=== PATIENT | female | born 1935 | race African-American/Black ===

== ENCOUNTER 2017-10-04 10:21 | Observation (INO) ==
[2017-10-04] MEDS ORDERED: 0.9 % Sodium Chloride 1,000 ML IVC ONE (10:30)
--- NOTE | 2017-10-04 10:46 | Emergency Department Note ---
Disposition Clinical Impression: General weakness, Confusion, Acute kidney injury, Sepsis secondary to UTI UTI (urinary tract infection) Qualifiers: Urinary tract infection type: site unspecified Hematuria presence: with hematuria Qualified Code(s): N39.0 - Urinary tract infection, site not specified Disposition: Admitted As Inpatient Condition: Good Referrals: Tara Joseph CNP [Primary Care Provider] - Forms: ED Satisfaction Letter Time of Disposition: 14:20 General Adult HPI - General Chief complaint: ED Shortness of Breath/Dyspnea Stated complaint: Shortness of breath Time Seen by Provider: 10/04/17 10:28 Source: patient, family, EMS Mode of arrival: EMS Limitations: no limitations Nursing Notes Reviewed: Yes Vital Signs Reviewed: Yes - History of Present Illness HPI Narrative: Patient presents to the ED via EMS and was seen and evaluated immediately upon arrival. EMS was called by the patient's son for generalized weakness and confusion. Son states that he took her to her family care physician a few days ago for an odor coming from her "female parts" states that they did some tests and placed her on an antibiotic that started within a period does not remember what it was. Reports that she has also been coughing a lot recently, so they gave her some promethazine syrup. States that since starting the antibiotics and the promethazine that she has been generally weak and having a decreased ability to walk. Also has been intermittently confused, which is different than her baseline. States that she looks dehydrated and has not been eating or drinking well. No vomiting or diarrhea. No known fever. Patient denies any chest pain or difficulty breathing. She does complain of having a headache. Denies any focal weakness Pain Scale: 7 - Related Data Home Medications Medication Instructions Recorded Confirmed Seizure Med 12/23/16 Previous Rx's Medication Instructions Recorded Amoxicillin/Clavulanate [Augmentin] 875 mg PO BIDWM #20 tablet 12/23/16 Promethazine/Dextromethorphan 5 ml PO Q4H PRN #120 ml 12/23/16 [Promethazine-Dm Syrup] methylPREDNISolone [Medrol] 4 - 24 mg PO DAILY #21 tablet 12/23/16 Allergies Allergy/AdvReac Type Severity Reaction Status Date / Time No Known Allergies Allergy Verified 10/04/17 10:32 All systems ED: reviewed and negative except as stated. Constitutional: Reports: weakness. Denies: fever Respiratory: Reports: cough. Denies: dyspnea Gastrointestinal: Denies: abdominal pain Genitourinary: Reports: as per HPI Neurological: Reports: headache, confusion Endocrine: Reports: fatigue Past Medical History - Past Medical History Attestation: Yes The following information was validated with the patient. Source: patient Medical history: Reports: hyperlipidemia, hypertension, seizures Surgical history: Reports: non-contributory Psychiatric history: Reports: no psych history - Social History Smoking Status: Never smoker Smokeless Tobacco Status: No Alcohol use: Reports: none Drug use: Reports: none Physical Exam - General Limitations: no limitations General appearance: alert, in no apparent distress, other (foul smell of UTI ) - Head Head exam: atraumatic, normocephalic, normal inspection - Eye Eye exam: Present: normal appearance, PERRL, EOMI - ENT ENT exam: mucous membranes dry (cracked) - Neck Neck exam: Present: normal inspection, full ROM, trachea midline - Chest Chest inspection: Present: normal inspection, symmetric chest wall rise - Respiratory Respiratory exam: Present: normal lung sounds bilaterally. Absent: respiratory distress - Cardiovascular Cardiovascular exam: Present: regular rate, normal rhythm, normal heart sounds - Abdominal Exam Abdominal exam: Present: soft, Non-Tender, distention. Absent: tenderness, guarding, rebound, rigidity - Extremities Exam Extremities exam: Present: normal capillary refill. Absent: pedal edema, calf tenderness - Expanded Lower Extremity Exam Hip/Pelvis exam: Present: pelvis stable - Neurological Exam Neurological exam: Present: alert. Absent: oriented X3 (oriented to person and place but not time) - Skin Skin exam: Present: warm, dry, intact, normal color Course - Reevaluation(s) Reevaluation #1: Patient was straight cathetered and her urine definitely looked infected. It was dark in color and heavily sedimented. We will go ahead and give her a dose of Rocephin as this would cover urinary and potential pulmonary sources. We will add antibiotics if needed once the workup is back. Time: 10:47 Reevaluation #2: Patient has UTI. We will admit for UTI and altered mental status. Patient given Rocephin previously. Also could have a pneumonia, so we had him on azithromycin. Vital Signs Temperature 99.7 F H 10/04/17 10:22 Pulse Rate 86 10/04/17 10:22 Respiratory Rate 18 10/04/17 10:22 Blood Pressure 144/81 10/04/17 10:22 O2 Sat by Pulse Oximetry 98 10/04/17 10:22 Temperature 99.7 F H 10/04/17 10:22 Pulse Rate 83 10/04/17 13:14 Respiratory Rate 18 10/04/17 13:14 Blood Pressure 127/76 10/04/17 13:14 O2 Sat by Pulse Oximetry 95 10/04/17 13:14 Oxygen Delivery Oxygen Delivery Nasal Cannula Medical Decision Making - Medical Records Medical records reviewed: Yes I reviewed the patient's medical records. - Lab Data Lab results reviewed: Yes I reviewed the patient's lab results. Result diagrams: 10/04/17 10:38 10/04/17 10:38 Lab Results 10/04/17 10/04/17 10/04/17 Range/Units 10:38 10:38 10:38 WBC 9.3 (4.3-11.1) K/mcL RBC 3.96 (3.82-4.97) M/mcL Hgb 12.2 (11.5-15.4) g/dL Hct 36.8 (35.3-44.9) % MCV 92.9 (83.0-100.0) fL MCH 30.8 (28.0-33.3) pg MCHC 33.2 (31.6-35.5) g/dL RDW 12.8 (11.5-14.5) % Plt Count 181 (140-400) K/mcL MPV 12.7 H (9.4-12.4) fL Immature Gran % 0.3 (0-4) % Seg Neutrophils % 68.1 % Lymphocytes % 22.5 % Monocytes % 8.7 % Eosinophils % 0.2 % Basophils % 0.2 % Neutrophils # 6.3 (1.6-8.9) K/mcL Lymphocytes # 2.1 (0.6-4.6) K/mcL Monocytes # 0.8 (0.0-1.3) K/mcL Eosinophils # 0.0 (0.0-0.6) K/mcL Basophils # 0.0 (0.0-0.2) K/mcL PT 12.7 H (9.4-12.1) Seconds INR 1.2 APTT 25.8 L (26.0-36.0) Seconds Sodium 141 (136-145) mEq/L Potassium 3.6 (3.5-5.1) mEq/L Chloride 107 (98-107) mEq/L Carbon Dioxide 24 (23-29) mEq/L BUN 37 H (8-23) mg/dL Creatinine 1.37 H (0.60-1.20) mg/dL Est GFR ( Amer) 45 L (> 60) Est GFR (Non-Af Amer) 37 L (> 60) BUN/Creatinine Ratio 27 H (6-26) Glucose 139 H (70-105) mg/dL Calculated Osmolality 303 H (280-300) Lactic Acid (0.5-2.2) mmol/L Calcium 9.2 (8.6-10.3) mg/dL Phosphorus 3.8 (2.7-4.5) mg/dL Magnesium 2.4 (1.6-2.6) mg/dL Total Bilirubin 0.6 (0.3-1.0) mg/dL Direct Bilirubin 0.3 H (0.0-0.2) mg/dL Indirect Bilirubin 0.3 (0.0-1.2) mg/dL AST 23 (13-39) Units/L ALT 16 (7-52) Units/L Alkaline Phosphatase 73 (34-104) Units/L Creatine Kinase 176 (30-223) Units/L Troponin I (< 0.04) ng/mL B-Natriuretic Peptide (Less than 100) pg/mL Serum Total Protein 7.8 (6.4-8.9) g/dL Albumin 3.9 (3.5-5.7) g/dL Globulin 3.9 H (2.4-3.5) g/dL Albumin/Globulin Ratio 1.0 L (1.1-2.2) Urine Color (Yellow) Urine Clarity (Clear) Urine pH (5.0-8.0) pH Units Ur Specific [place] (1.010-1.025) Urine Protein (Neg-Trace) mg/dL Urine Glucose (UA) (Normal) mg/dL Urine Ketones (Negative) mg/dL Urine Blood (Negative) Urine Nitrite (Negative) Urine Bilirubin (Negative) Urine Urobilinogen (Normal) mg/dL Ur Leukocyte Esterase (Negative) Urine Microscopic RBC (0-3) per hpf Urine Microscopic WBC (0-3) per hpf Ur Squamous Epith Cells (None-Few) per lpf Urine Bacteria (None-Few) per hpf Granular Casts (None Seen) per lpf WBC Casts (None Seen) per lpf Ur Culture Indicated? (NO) 10/04/17 10/04/17 10/04/17 Range/Units 10:38 10:38 10:38 WBC (4.3-11.1) K/mcL RBC (3.82-4.97) M/mcL Hgb (11.5-15.4) g/dL Hct (35.3-44.9) % MCV (83.0-100.0) fL MCH (28.0-33.3) pg MCHC (31.6-35.5) g/dL RDW (11.5-14.5) % Plt Count (140-400) K/mcL MPV (9.4-12.4) fL Immature Gran % (0-4) % Seg Neutrophils % % Lymphocytes % % Monocytes % % Eosinophils % % Basophils % % Neutrophils # (1.6-8.9) K/mcL Lymphocytes # (0.6-4.6) K/mcL Monocytes # (0.0-1.3) K/mcL Eosinophils # (0.0-0.6) K/mcL Basophils # (0.0-0.2) K/mcL PT (9.4-12.1) Seconds INR APTT (26.0-36.0) Seconds Sodium (136-145) mEq/L Potassium (3.5-5.1) mEq/L Chloride (98-107) mEq/L Carbon Dioxide (23-29) mEq/L BUN (8-23) mg/dL Creatinine (0.60-1.20) mg/dL Est GFR ( Amer) (> 60) Est GFR (Non-Af Amer) (> 60) BUN/Creatinine Ratio (6-26) Glucose (70-105) mg/dL Calculated Osmolality (280-300) Lactic Acid 0.9 (0.5-2.2) mmol/L Calcium (8.6-10.3) mg/dL Phosphorus (2.7-4.5) mg/dL Magnesium (1.6-2.6) mg/dL Total Bilirubin (0.3-1.0) mg/dL Direct Bilirubin (0.0-0.2) mg/dL Indirect Bilirubin (0.0-1.2) mg/dL AST (13-39) Units/L ALT (7-52) Units/L Alkaline Phosphatase (34-104) Units/L Creatine Kinase (30-223) Units/L Troponin I < 0.03 (< 0.04) ng/mL B-Natriuretic Peptide 176 H (Less than 100) pg/mL Serum Total Protein (6.4-8.9) g/dL Albumin (3.5-5.7) g/dL Globulin (2.4-3.5) g/dL Albumin/Globulin Ratio (1.1-2.2) Urine Color (Yellow) Urine Clarity (Clear) Urine pH (5.0-8.0) pH Units Ur Specific [place] (1.010-1.025) Urine Protein (Neg-Trace) mg/dL Urine Glucose (UA) (Normal) mg/dL Urine Ketones (Negative) mg/dL Urine Blood (Negative) Urine Nitrite (Negative) Urine Bilirubin (Negative) Urine Urobilinogen (Normal) mg/dL Ur Leukocyte Esterase (Negative) Urine Microscopic RBC (0-3) per hpf Urine Microscopic WBC (0-3) per hpf Ur Squamous Epith Cells (None-Few) per lpf Urine Bacteria (None-Few) per hpf Granular Casts (None Seen) per lpf WBC Casts (None Seen) per lpf Ur Culture Indicated? (NO) 10/04/17 Range/Units 10:42 WBC (4.3-11.1) K/mcL RBC (3.82-4.97) M/mcL Hgb (11.5-15.4) g/dL Hct (35.3-44.9) % MCV (83.0-100.0) fL MCH (28.0-33.3) pg MCHC (31.6-35.5) g/dL RDW (11.5-14.5) % Plt Count (140-400) K/mcL MPV (9.4-12.4) fL Immature Gran % (0-4) % Seg Neutrophils % % Lymphocytes % % Monocytes % % Eosinophils % % Basophils % % Neutrophils # (1.6-8.9) K/mcL Lymphocytes # (0.6-4.6) K/mcL Monocytes # (0.0-1.3) K/mcL Eosinophils # (0.0-0.6) K/mcL Basophils # (0.0-0.2) K/mcL PT (9.4-12.1) Seconds INR APTT (26.0-36.0) Seconds Sodium (136-145) mEq/L Potassium (3.5-5.1) mEq/L Chloride (98-107) mEq/L Carbon Dioxide (23-29) mEq/L BUN (8-23) mg/dL Creatinine (0.60-1.20) mg/dL Est GFR ( Amer) (> 60) Est GFR (Non-Af Amer) (> 60) BUN/Creatinine Ratio (6-26) Glucose (70-105) mg/dL Calculated Osmolality (280-300) Lactic Acid (0.5-2.2) mmol/L Calcium (8.6-10.3) mg/dL Phosphorus (2.7-4.5) mg/dL Magnesium (1.6-2.6) mg/dL Total Bilirubin (0.3-1.0) mg/dL Direct Bilirubin (0.0-0.2) mg/dL Indirect Bilirubin (0.0-1.2) mg/dL AST (13-39) Units/L ALT (7-52) Units/L Alkaline Phosphatase (34-104) Units/L Creatine Kinase (30-223) Units/L Troponin I (< 0.04) ng/mL B-Natriuretic Peptide (Less than 100) pg/mL Serum Total Protein (6.4-8.9) g/dL Albumin (3.5-5.7) g/dL Globulin (2.4-3.5) g/dL Albumin/Globulin Ratio (1.1-2.2) Urine Color Dark Yellow (Yellow) Urine Clarity Turbid A (Clear) Urine pH 6.0 (5.0-8.0) pH Units Ur Specific [place] 1.021 (1.010-1.025) Urine Protein 100 H (Neg-Trace) mg/dL Urine Glucose (UA) Normal (Normal) mg/dL Urine Ketones Negative (Negative) mg/dL Urine Blood Moderate H (Negative) Urine Nitrite Positive A (Negative) Urine Bilirubin Small H (Negative) Urine Urobilinogen Normal (Normal) mg/dL Ur Leukocyte Esterase Small H (Negative) Urine Microscopic RBC 0-3 (0-3) per hpf Urine Microscopic WBC 50-100 H (0-3) per hpf Ur Squamous Epith Cells Many H (None-Few) per lpf Urine Bacteria Many H (None-Few) per hpf Granular Casts Few H (None Seen) per lpf WBC Casts Many H (None Seen) per lpf Ur Culture Indicated? NO. (NO) - Radiology Data Radiology results reviewed: Yes I reviewed the patient's radiology results. - EKG Data EKG #1 EKG attestation: Yes I reviewed and interpreted this EKG. EKG results narrative: Sinus rhythm, rate 85, SD interval 164, QRS 92, QTC 398, left axis deviation, no acute ischemic changes Critical Care Time Critical Care Time: Yes Total Critical Care Time: 35 Attestation: Critical care time 35 minutes managing patient's urosepsis. Attestation Statement - Attestation Attestation: Patient was seen with resident physician. I reviewed the history, physical, assessment and plan, and agree with the findings. I also personally evaluated this patient and had [id number] time with this patient. 82-year-old female brought to the emergency department by her son for increased weakness and perhaps some mild confusion. Patient still says she feels generally okay just weak, denies shortness of breath chest pain or abdominal pain. Son however says she has had some issues with her "female parts" for which she has gotten an antibiotic. He notes that her ability to walk and to care for herself has diminished since she started antibiotics and cough medicine several days ago. She is brought today for evaluation and treatment. On exam vital signs were stable. ENT is dry mucous membranes. Heart regular rhythm and rate. Lungs no appreciable abnormalities. Abdomen is soft and nontender. Extremities mild swelling in the feet bilaterally. Remainder is unremarkable. Neurologically she is alert moves all extremities and follows commands. ED course we will do a full septic workup including head CT scan as at one point the patient had complained of a headache to the resident physician. Once complete we will disposition the patient according to the findings of the workup. Patient's workup was suggestive for urosepsis based more on acute kidney injury then blood cell count or other vital signs.. We will start an IV antibiotics and admitted to hospital service. The hospitalist was notified as to need for admission and agreed to accept the patient. Agree with resident physician assessment and plan.
[2017-10-04 10:49] LABS: Basophils % 0.2 %; Eosinophils % 0.2 %; Hematocrit 36.8 % (35.3-44.9); Hemoglobin 12.2 g/dL (11.5-15.4); Immature Granulocytes % 0.3 % (0-4); Lymphocytes # 2.1 K/mcL (0.6-4.6); Lymphocytes % 22.5 %; Mean Corpuscular HGB Conc 33.2 g/dL (31.6-35.5); Mean Corpuscular Hemoglobin 30.8 pg (28.0-33.3); Mean Corpuscular Volume 92.9 fL (83.0-100.0); Mean Platelet Volume 12.7 fL (9.4-12.4); Monocytes # 0.8 K/mcL (0.0-1.3); Monocytes % 8.7 %; Neutrophils # 6.3 K/mcL (1.6-8.9); Platelet Count 181 K/mcL (140-400); Red Blood Count 3.96 M/mcL (3.82-4.97); Red Cell Distribution Width 12.8 % (11.5-14.5); Segmented Neutrophils % 68.1 %
[2017-10-04 10:55] LABS: Bilirubin,Urine Small (Negative); Blood,Urine Moderate (Negative); Clarity,Urine Turbid (Clear); Color,Urine Dark Yellow (Yellow); Glucose,Urine (UA) Normal (Normal); Ketones,Urine Negative (Negative); Leukocyte Esterase,Urine Small (Negative); Nitrite,Urine Positive (Negative); Protein,Urine 100 mg/dL (Neg-Trace); Specific Gravity,Urine 1.021 (1.010-1.025); Urobilinogen,Urine Normal (Normal)
[2017-10-04 10:57] LABS: INR 1.2; Prothrombin Time 12.7 Seconds (9.4-12.1)
[2017-10-04 10:58] LABS: Bacteria,Urine Many per hpf (None-Few); RBC,Urine 0-3 per hpf (0-3); Squamous Epithelial Cell,Urine Many per lpf (None-Few); WBC,Urine 50-100 per hpf (0-3)
[2017-10-04 11:00] LABS: Activated Partial Thrombo Time 25.8 Seconds (26.0-36.0)
[2017-10-04] MEDS ORDERED: cefTRIAXone 1,000 MG in Water for inj. (sterile) 10 ML IVP ONE (11:04)
[2017-10-04 11:06] LABS: Albumin 3.9 g/dL (3.5-5.7); Bilirubin,Direct 0.3 mg/dL (0.0-0.2); Bilirubin,Indirect 0.3 mg/dL (0.0-1.2); Bilirubin,Total 0.6 mg/dL (0.3-1.0); Calcium 9.2 mg/dL (8.6-10.3); Globulin 3.9 g/dL (2.4-3.5); Magnesium 2.4 mg/dL (1.6-2.6); Phosphorous 3.8 mg/dL (2.7-4.5); Potassium 3.6 mEq/L (3.5-5.1); Total Protein 7.8 g/dL (6.4-8.9)
[2017-10-04 11:17] LABS: White Blood Cell Casts,Urine Many per lpf (None Seen)
[2017-10-04 11:18] LABS: Granular Casts,Urine Few per lpf (None Seen)
[2017-10-04] MEDS ORDERED: Azithromycin 500 MG in D5% in Water 250 ML IVPB ONE (11:27)
[2017-10-04] MEDS ORDERED: Naloxone 0.4 MG/ML INJ IVP PRN (14:57)
--- NOTE | 2017-10-04 16:09 | Internal Med History&Physical ---
Date of Encounter: 10/04/17 Time of Encounter: 16:02 Assessment and Plan (1) UTI (urinary tract infection) Current visit: Yes Status: Acute UA indicative of UTI; continue IV ceftriaxone started in ED. Follow urine culture and narrow accordingly. Qualifiers: Urinary tract infection type: site unspecified Hematuria presence: with hematuria Qualified Code(s): N39.0 - Urinary tract infection, site not specified; R31.9 - Hematuria, unspecified; R31.9 - Hematuria, unspecified (2) Acute kidney injury Current visit: Yes Status: Acute Cr 1.3; baseline normal. Suspect multifactorial with decreased oral intake and UTI. Received IV fluids in the ED. Avoid nephrotoxic agents as possible. Monitor repeat renal function (3) Seizure Current visit: Yes Status: Acute per hx. No recent seizure activity. Continue home Tegretol, seizure precautions (4) Acute sinusitis Current visit: Yes Status: Acute Incidentally found; head CT with moderate paranasal sinus disease with fluid suggesting acute inflammation. Afebrile, no elevated WBC. Trial intranasal steroids. Hold on ATB. Qualifiers: Sinusitis location: pansinusitis Recurrence: not specified as recurrent Qualified Code(s): J01.40 - Acute pansinusitis, unspecified (5) Abnormal chest xray Current visit: Yes Status: Acute CXR with questionable focal right mid lung density, CT of chest pending. (6) DVT prophylaxis Current visit: Yes Status: Acute Internal Medicine - H&P: HPI Chief complaint: weakness Admitted From: Home Plans for Post Hospital Care: Transfer Jail Facility History of present illness: Ms. Mitchell is a 82 year old female osteoarthritis, peripheral neuropathy and seizure disorder who presented to [facility] on 10/04/2017 with complaints of generalized weakness. She was found to have a UTI and AK I therefore placed in observation status for further workup and treatment. Information obtained from chart review, patient report insulin at bedside. Patient reports living with her son and only able to get around without difficulty. She has been receiving outpatient cortisone treatments to bilateral knees. Patient reports over the last few days she has not been able to get around as she used to, reports this pain in her knees and legs with ambulation. Overall feels generally weak. Son at bedside and requesting SNF placement if she is qualifies. No fevers or chills, no dysuria. No chest pain or shortness of breath. Son does report decreased oral intake over the last 2-3 days Past Med Surg Social Fam HX - Past Medical History Medical history: hyperlipidemia, hypertension, seizures Psychiatric history: no psych history - Past Surgical History Surgical History: non-contributory - Social History Smoking Status: Never smoker Smokeless Tobacco Status: No Alcohol use: none Drug use: none - Additional Family History Additional family history: Family history reviewed and noncontributory per patient Internal Medicine - H&P: Meds Albuterol Sulfate [Proair Hfa] 1 - 2 puff IH Q4-6H PRN 10/04/17 [History] CarBAMazepine [Carbamazepine ER] 400 mg PO BID 10/04/17 [History] Gabapentin [Neurontin] 300 mg PO HS 10/04/17 [History] Pravastatin Sodium [Pravachol] 40 mg PO HS 10/04/17 [History] Promethazine/Codeine [Phenergan/Codeine] 5 - 10 ml PO Q4-6H PRN 10/04/17 [ History] metroNIDAZOLE [Flagyl] 500 mg PO BID 10/04/17 [History] 3 Allergy/AdvReac Type Severity Reaction Status Date / Time No Known Allergies Allergy Verified 10/04/17 10:32 All Systems PM: A 10-system review of systems was performed and is negative for pertinent findings except as documented above in the HPI. - Constitutional Constitutional: lethargy, malaise, no chills, no fever(s), no night sweats - EENT Eyes: no change in vision, no discharge, no pain, no photophobia Ears: no ear discharge, no ear pain, no tinnitus Nose, mouth and throat: no dysphagia, no nasal discharge, no neck pain, no sore throat - Cardiovascular Cardiovascular ROS IM: no chest pain, no diaphoresis, no dyspnea, no lightheadedness, no palpitations, no syncope - Respiratory Respiratory: no cough, no dyspnea, no wheezing, no excessive phlegm production - Gastrointestinal Gastrointestinal: no abdominal pain, no diarrhea, no hematemesis, no hematochezia, no melena, no nausea, no vomiting - Genitourinary Genitourinary: no change in urinary stream, no dysuria, no flank pain, no hematuria - Musculoskeletal Musculoskeletal ROS IM: no numbness, no tingling - Integumentary Integumentary IM: no rash, no unusual bruising - Neurological Neurological ROS: no confusion, no convulsions, no focal weakness, no numbness, no tingling, no tremor(s) - Hematologic/Lymphatic Hematologic/Lymphatic: no easy bruising - Constitutional Vitals: Temp Pulse Resp BP Pulse Ox 99.7 F H 76 17 139/68 100 10/04/17 10:22 10/04/17 15:10 10/04/17 15:10 10/04/17 15:10 10/04/17 15:10 General appearance: Present: A&O X 3, no acute distress - Head Head exam: Present: atraumatic, normocephalic - Eye Eye exam: Present: PERRL, conjuntiva pink, sclera anicteric Pupils: Present: PERRL - Neck Neck exam general surgery: Present: supple, trachea midline. Absent: lymphadenopathy - Respiratory Respiratory exam: Present: CTAB. Absent: accessory muscle use, rales, rhonchi, wheezes - Cardiovascular Cardiovascular exam: Present: RRR, +S1, +S2. Absent: diastolic murmur, gallop, rubs, systolic murmur - GI/Abdominal GI/Abdominal exam: Present: normal bowel sounds, soft, no peritoneal signs. Absent: distended, tenderness - Extremities Exam Extremities exam: Present: warm, radial pulses palpable and symmetrical. Absent : calf tenderness, cyanotic, pedal edema - Neurological Exam Neurological exam: Present: CN II-XII intact, oriented X3, no focal deficits. Absent: pronater drift, facial droop, speech deficit - Skin Skin exam: Present: dry, intact Internal Med - H&P Results - Labs CBC & Chem 7: 10/04/17 10:38 10/04/17 10:38
[2017-10-04] MEDS: Fluticasone Propionate Nasal 50 MCG/SPRAY BOTTLE NS SCH (17:47)
[2017-10-04] MEDS: Gabapentin 300 MG CAPSULE PO SCH (20:52)
[2017-10-04] MEDS: CarBAMazepine XR (12 hr) 100 MG TAB PO SCH (20:52)
[2017-10-04] MEDS: *HR* Heparin 5,000 UNIT/ML VIAL SQ SCH (20:52)
[2017-10-05 03:22] LABS: Calcium 8.9 mg/dL (8.6-10.3); Potassium 3.6 mEq/L (3.5-5.1)
[2017-10-05] MEDS: *HR* Heparin 5,000 UNIT/ML VIAL SQ SCH ×3 (06:03→20:29)
[2017-10-05] MEDS: Fluticasone Propionate Nasal 50 MCG/SPRAY BOTTLE NS SCH (08:48)
[2017-10-05] MEDS: CarBAMazepine XR (12 hr) 100 MG TAB PO SCH ×2 (08:49→20:29)
[2017-10-05] MEDS: cefTRIAXone 1,000 MG in Water for inj. (sterile) 20 ML 10 ML IVP SCH (08:51)
--- NOTE | 2017-10-05 10:56 | Internal Med Progress Note ---
Date of Encounter: 10/05/17 Time of Encounter: 10:54 - Assessment and plan (1) UTI (urinary tract infection) Current Visit: Yes Status: Acute Assessment and plan: UA indicative of UTI; continue IV ceftriaxone started in ED. Follow urine culture and narrow accordingly. Qualifiers: Urinary tract infection type: site unspecified Hematuria presence: with hematuria Qualified Code(s): N39.0 - Urinary tract infection, site not specified; R31.9 - Hematuria, unspecified; R31.9 - Hematuria, unspecified (2) Acute kidney injury Current Visit: Yes Status: Acute Assessment and plan: Cr 1.3; baseline normal. Suspect multifactorial with decreased oral intake and UTI. Received IV fluids in the ED. Avoid nephrotoxic agents as possible. Repeat renal function normal (3) Community acquired bacterial pneumonia Current Visit: Yes Status: Acute Assessment and plan: Chest CT concerning for RUL pneumonia. Afebrile, no elevated WBC. No recent ATB use, no recent hospitalization. Cont IV azithromycin, ceftriaxone to cover for gram+/- and atypicals. Resp PCR, urinary antigens pending (4) Seizure Current Visit: Yes Status: Acute Assessment and plan: per hx. No recent seizure activity. Continue home Tegretol, seizure precautions (5) Acute sinusitis Current Visit: Yes Status: Acute Assessment and plan: Incidentally found; head CT with moderate paranasal sinus disease with fluid suggesting acute inflammation. Afebrile, no elevated WBC. Trial intranasal steroids. On azithromycin for suspected PNA which should cover for bacterial sinusitis Qualifiers: Sinusitis location: pansinusitis Recurrence: not specified as recurrent Qualified Code(s): J01.40 - Acute pansinusitis, unspecified (6) DVT prophylaxis Current Visit: Yes Status: Acute Assessment and plan: heparin - Time Spent With Patient less than 15 minutes - Subjective Interval history: Seen and examined at bedside, patient says she feels well. She c/o chronic lower back pain, otherwise she has no complaints. No CP, no SOB, no numbness/ tingling. No dysuria - Constitutional Vitals: Temp Pulse Resp BP Pulse Ox 97.8 F 70 16 139/76 95 10/05/17 06:57 10/05/17 06:57 10/05/17 06:57 10/05/17 06:57 10/05/17 06:57 General appearance: Present: A&O X 3, no acute distress - Head Head exam: Present: atraumatic, normocephalic - Eye Eye exam: Present: PERRL, conjuntiva pink, sclera anicteric Pupils: Present: PERRL - Neck Neck exam general surgery: Present: supple, trachea midline. Absent: lymphadenopathy - Respiratory Respiratory exam: Present: CTAB. Absent: accessory muscle use, rales, rhonchi, wheezes - Cardiovascular Cardiovascular exam: Present: RRR, +S1, +S2. Absent: diastolic murmur, gallop, rubs, systolic murmur - GI/Abdominal GI/Abdominal exam: Present: normal bowel sounds, soft, no peritoneal signs. Absent: distended, tenderness - Extremities Exam Extremities exam: Present: warm, radial pulses palpable and symmetrical. Absent : calf tenderness, cyanotic, pedal edema - Neurological Exam Neurological exam: Present: CN II-XII intact, oriented X3, no focal deficits. Absent: pronater drift, facial droop, speech deficit - Skin Skin exam: Present: dry, intact Internal Medicine: Result - Labs CBC & Chem 7: 10/04/17 10:38 10/05/17 02:57 Labs: BMP 10/05/17 02:57 Sodium 140 Potassium 3.6 Chloride 108 H Carbon Dioxide 27 BUN 35 H Creatinine 1.07 Glucose 105 Calcium 8.9 - ABG Interpretation ABG results: PT/INR, D-dimer PT 12.7 Seconds (9.4-12.1) H 10/04/17 10:38 - Impressions Impressions Lumbar Spine X-Ray 10/04/17 16:05 IMPRESSION: No acute osseous abnormality. Multilevel degenerative changes, which are moderate to severe at L5-S1. D/ / 10/04/2017 17:18:16 Willie Chang MD / Maryann Gipson Interpreting Provider: Willie Chang MD Chest CT 10/04/17 16:31 IMPRESSION: Mild patchy, somewhat nodular right upper lobe airspace disease, most compatible with pneumonia, accounting for the right mid lung nodular opacity on chest x-ray. D/ / Miguelina Acosta Cha, MD / Miguelina Acosta Cha, MD Interpreting Provider: Miguelina Acosta Cha, MD Consult Discharge Plan - Plan Referrals: Tara Joseph CNP [Primary Care Provider] -
[2017-10-05] MEDS: Azithromycin 500 MG in D5% in Water 250 ML IVPB SCH (11:36)
[2017-10-05 13:26] LABS: Adenovirus Not Detected (Not Detect); Bordetella Pertussis Not Detected (Not Detect); Chlamydophila pneumoniae Not Detected (Not Detect); Coronavirus 229E Not Detected (Not Detect); Coronavirus HKU1 Not Detected (Not Detect); Coronavirus NL63 Not Detected (Not Detect); Coronavirus OC43 Not Detected (Not Detect); Human Metapneumovirus Not Detected (Not Detect); Human Rhinovirus/Enterovirus Not Detected (Not Detect); Influenza A Subtype 2009 H1 Not Detected (Not Detect); Influenza A Untypeable Not Detected (Not Detect); Influenza B Not Detected (Not Detect); Mycoplasma pneumoniae Not Detected (Not Detect); Parainfluenza Virus 1 Not Detected (Not Detect); Parainfluenza Virus 2 Not Detected (Not Detect); Parainfluenza Virus 3 Not Detected (Not Detect); Parainfluenza Virus 4 Not Detected (Not Detect); Respiratory Syncytial Virus Not Detected (Not Detect)
[2017-10-05] MEDS: Gabapentin 300 MG CAPSULE PO SCH (20:28)
[2017-10-06] MEDS: *HR* Heparin 5,000 UNIT/ML VIAL SQ SCH ×3 (05:42→22:27)
[2017-10-06] MEDS: CarBAMazepine XR (12 hr) 100 MG TAB PO SCH ×2 (10:22→20:14)
[2017-10-06] MEDS: cefTRIAXone 1,000 MG in Water for inj. (sterile) 20 ML 10 ML IVP SCH (10:22)
[2017-10-06] MEDS: Fluticasone Propionate Nasal 50 MCG/SPRAY BOTTLE NS SCH (10:24)
[2017-10-06] MEDS: Azithromycin 500 MG in D5% in Water 250 ML IVPB SCH (12:54)
--- NOTE | 2017-10-06 14:20 | Internal Med Progress Note ---
Date of Encounter: 10/06/17 Time of Encounter: 14:18 - Assessment and plan (1) UTI (urinary tract infection) Current Visit: Yes Status: Acute Assessment and plan: UA indicative of UTI; continue IV ceftriaxone started in ED. Follow urine culture and narrow accordingly. Qualifiers: Urinary tract infection type: site unspecified Hematuria presence: with hematuria Qualified Code(s): N39.0 - Urinary tract infection, site not specified; R31.9 - Hematuria, unspecified; R31.9 - Hematuria, unspecified (2) Acute kidney injury Current Visit: Yes Status: Acute Assessment and plan: Cr 1.3; baseline normal. Suspect multifactorial with decreased oral intake and UTI. Received IV fluids in the ED. Avoid nephrotoxic agents as possible. Repeat renal function normal (3) Community acquired bacterial pneumonia Current Visit: Yes Status: Acute Assessment and plan: Chest CT concerning for RUL pneumonia. Afebrile, no elevated WBC. No recent ATB use, no recent hospitalization. Urinary antigens negative. Cont IV azithromycin , ceftriaxone to cover for gram+/- and atypicals. (4) Influenza A Current Visit: Yes Status: Acute Assessment and plan: resp PCR positive for influenza A. Continue Tamiflu for total 5 day course (5) Seizure Current Visit: Yes Status: Acute Assessment and plan: per hx. No recent seizure activity. Continue home Tegretol, seizure precautions (6) Acute sinusitis Current Visit: Yes Status: Acute Assessment and plan: Incidentally found; head CT with moderate paranasal sinus disease with fluid suggesting acute inflammation. Afebrile, no elevated WBC. Trial intranasal steroids. On azithromycin for suspected PNA which should cover for bacterial sinusitis Qualifiers: Sinusitis location: pansinusitis Recurrence: not specified as recurrent Qualified Code(s): J01.40 - Acute pansinusitis, unspecified (7) DVT prophylaxis Current Visit: Yes Status: Acute Assessment and plan: heparin - Subjective Interval history: Seen and examined at bedside, patient says she feels well. Still with c/o chronic lower back pain, otherwise she has no complaints. No CP, no SOB, no numbness/tingling. No dysuria - Constitutional Vitals: Temp Pulse Resp BP Pulse Ox 98.4 F 74 16 179/84 95 10/06/17 11:30 10/06/17 11:30 10/06/17 11:30 10/06/17 11:30 10/06/17 11:30 General appearance: Present: A&O X 3, no acute distress - Head Head exam: Present: atraumatic, normocephalic - Eye Eye exam: Present: PERRL, conjuntiva pink, sclera anicteric Pupils: Present: PERRL - Neck Neck exam general surgery: Present: supple, trachea midline. Absent: lymphadenopathy - Respiratory Respiratory exam: Present: CTAB. Absent: accessory muscle use, rales, rhonchi, wheezes - Cardiovascular Cardiovascular exam: Present: RRR, +S1, +S2. Absent: diastolic murmur, gallop, rubs, systolic murmur - GI/Abdominal GI/Abdominal exam: Present: normal bowel sounds, soft, no peritoneal signs. Absent: distended, tenderness - Extremities Exam Extremities exam: Present: warm, radial pulses palpable and symmetrical. Absent : calf tenderness, cyanotic, pedal edema - Neurological Exam Neurological exam: Present: CN II-XII intact, oriented X3, no focal deficits. Absent: pronater drift, facial droop, speech deficit - Skin Skin exam: Present: dry, intact Internal Medicine: Result - Labs CBC & Chem 7: 10/04/17 10:38 10/05/17 02:57 - ABG Interpretation ABG results: PT/INR, D-dimer PT 12.7 Seconds (9.4-12.1) H 10/04/17 10:38 Consult Discharge Plan - Plan Referrals: Tara Joseph, [employer] [Primary Care Provider] -
[2017-10-06] MEDS: Gabapentin 300 MG CAPSULE PO SCH (20:15)
[2017-10-06] MEDS: Oseltamivir Phosphate 30 MG CAPSULE PO SCH (20:15)
[2017-10-07] MEDS: *HR* Heparin 5,000 UNIT/ML VIAL SQ SCH ×2 (05:17→13:23)
[2017-10-07] MEDS: CarBAMazepine XR (12 hr) 100 MG TAB PO SCH (09:48)
[2017-10-07] MEDS: Oseltamivir Phosphate 30 MG CAPSULE PO SCH (09:49)
[2017-10-07] MEDS: cefTRIAXone 1,000 MG in Water for inj. (sterile) 20 ML 10 ML IVP SCH (09:49)
[2017-10-07] MEDS: Fluticasone Propionate Nasal 50 MCG/SPRAY BOTTLE NS SCH (09:49)
[2017-10-07] MEDS: Azithromycin 500 MG in D5% in Water 250 ML IVPB SCH (12:00)
--- NOTE | 2017-10-07 13:57 | Discharge Summary ---
Date of Encounter: 10/07/17 Time of Encounter: 13:55 - Discharge Diagnosis (1) Community acquired bacterial pneumonia Priority: Primary Status: Acute Comments: Chest CT concerning for RUL pneumonia. Afebrile, no elevated WBC. No recent ATB use, no recent hospitalization. Urinary antigens negative. Treated with IV azithromycin, ceftriaxone. Changed to Levaquin at discharge. (2) Influenza A Priority: Primary Status: Acute Comments: resp PCR positive for influenza A. Continue Tamiflu for total 5 day course (3) Acute sinusitis Priority: Primary Status: Acute Comments: Incidentally found; head CT with moderate paranasal sinus disease with fluid suggesting acute inflammation. Afebrile, no elevated WBC. Discharge home on fluticasone. On Levaquin as noted above which would cover for bacterial component. Qualifiers: Sinusitis location: pansinusitis Recurrence: not specified as recurrent Qualified Code(s): J01.40 - Acute pansinusitis, unspecified (4) UTI (urinary tract infection) Priority: Primary Status: Acute Comments: UA indicative of UTI. Received 3 doses IV ceftriaxone. Urine culture was bryant- sensitive Escherichia coli. Discharge on Levaquin Qualifiers: Urinary tract infection type: site unspecified Hematuria presence: with hematuria Qualified Code(s): N39.0 - Urinary tract infection, site not specified; R31.9 - Hematuria, unspecified; R31.9 - Hematuria, unspecified (5) Acute kidney injury Priority: Primary Status: Acute Comments: Cr 1.3; baseline normal. Suspect multifactorial with decreased oral intake and UTI. Normalized with IV fluids. (6) Seizure Priority: Secondary Status: Chronic Comments: per hx. No recent seizure activity. Continue home Tegretol, seizure precautions - Discharge Medications Prescriptions: Fluticasone Propionate Nasal [Flonase] 100 mcg NS DAILY #1 bottle levoFLOXacin [Levaquin] 750 mg PO DAILY #5 tablet Oseltamivir Phosphate [Tamiflu] 30 mg PO BID #6 capsule Home Medications: Albuterol Sulfate [Proair Hfa] 1 - 2 puff IH Q4-6H PRN 10/04/17 [History] CarBAMazepine [Carbamazepine ER] 400 mg PO BID 10/04/17 [History] Gabapentin [Neurontin] 300 mg PO HS 10/04/17 [History] Pravastatin Sodium [Pravachol] 40 mg PO HS 10/04/17 [History] Promethazine/Codeine [Phenergan/Codeine] 5 - 10 ml PO Q4-6H PRN 10/04/17 [ History] Fluticasone Propionate Nasal [Flonase] 100 mcg NS DAILY #1 bottle 10/07/17 [Rx] Oseltamivir Phosphate [Tamiflu] 30 mg PO BID #6 capsule 10/07/17 [Rx] levoFLOXacin [Levaquin] 750 mg PO DAILY #5 tablet 10/07/17 [Rx] Allergies/Adverse Reactions: 3 Allergy/AdvReac Type Severity Reaction Status Date / Time No Known Allergies Allergy Verified 10/04/17 10:32 Procedures/tests Complete & Pending: Procedures Performed prior 72 hours Category Date Time Status CT chest w/o contrast [CT chest wo con] [CT] Routine Cat Scan 10/04/17 16:31 Completed Date of admission: 10/04/17 14:33 Primary care physician: Tara Joseph CNP Consults: 10/04/17 16:06 Consult to Physical Therapy [CONS] Routine Comment: Evaluate, develop and implement POC Reason for Consult: Generalized wekaness. Wants SNF placement OT [Consult to Occupational Therapy] [CONS] Routine Comment: Evaluate, develop and implement POC Reason for Consult: Generalized wekaness. Wants SNF placement 10/04/17 17:40 Consult to Silhouette Artist [CONS] Routine Reason for SW Consult: DISCHARGE NEEDS, HOME HEALTH OR ECF Discharging clinician: Ramona Oliveira Anticipated date of discharge: 10/07/17 - Patient Status Disposition: Home Health Service Condition: Good Functional capacity at discharge: uses cane/walker Overall status at discharge: patient is back to baseline - Discharge Instructions Instructions: Urinary Tract Infection in Women (DC), Community-acquired Pneumonia (DC), Influenza (DC), Oseltamivir (By mouth), Levofloxacin (By mouth) Follow Up With: Tara Joseph CNP [Primary Care Provider] - - Diet and Activity Activity: as per physical therapy, increase activity as tolerated Diet: advance to your usual diet Interval History: Seen and examined at bedside; uneventful night, says she slept well. She has no complaints. Says she feels stable to go home and would like to be discharged home today if possible. Hospital course: See assessment and plan for hospital course - Time Spent with Patient Total time spent providing and/or coordinating discharge services: - Constitutional Vitals: Temp Pulse Resp BP Pulse Ox 98.2 F 64 14 168/91 97 10/07/17 10:34 10/07/17 10:34 10/07/17 10:34 10/07/17 10:34 10/07/17 10:34 General appearance: Present: A&O X 3, no acute distress - Head Head exam: Present: atraumatic, normocephalic - Eye Eye exam: Present: PERRL, conjuntiva pink, sclera anicteric Pupils: Present: PERRL - Neck Neck exam general surgery: Present: supple, trachea midline. Absent: lymphadenopathy - Respiratory Respiratory exam: Present: CTAB. Absent: accessory muscle use, rales, rhonchi, wheezes - Cardiovascular Cardiovascular exam: Present: RRR, +S1, +S2. Absent: diastolic murmur, gallop, rubs, systolic murmur - GI/Abdominal GI/Abdominal exam: Present: normal bowel sounds, soft, no peritoneal signs. Absent: distended, tenderness - Extremities Exam Extremities exam: Present: warm, radial pulses palpable and symmetrical. Absent : calf tenderness, cyanotic, pedal edema - Neurological Exam Neurological exam: Present: CN II-XII intact, oriented X3, no focal deficits. Absent: pronater drift, facial droop, speech deficit - Skin Skin exam: Present: dry, intact
--- NOTE | 2017-10-07 14:11 | Physician Discharge Referral ---
Home Health/Hosp Referral Info Transfer to: Home Health Attending Provider: Ramona Oliveira APRN Provider in Charge Post Discharge: PCP - Diagnosis (1) Community acquired bacterial pneumonia Status: Acute (2) Influenza A Status: Acute (3) Acute sinusitis Status: Acute (4) UTI (urinary tract infection) Status: Acute (5) Acute kidney injury Status: Acute (6) Seizure Status: Chronic - Respiratory Orders Smoking Cessation: Smoking cessation has been advised. For more information, call the [place] Tobacco Quit Line at 3-399-RAJK-NOW. - Transfer Medications Prescriptions: Fluticasone Propionate Nasal [Flonase] 100 mcg NS DAILY #1 bottle levoFLOXacin [Levaquin] 750 mg PO DAILY #5 tablet Oseltamivir Phosphate [Tamiflu] 30 mg PO BID #6 capsule Home Medications: Albuterol Sulfate [Proair Hfa] 1 - 2 puff IH Q4-6H PRN 10/04/17 [History] CarBAMazepine [Carbamazepine ER] 400 mg PO BID 10/04/17 [History] Gabapentin [Neurontin] 300 mg PO HS 10/04/17 [History] Pravastatin Sodium [Pravachol] 40 mg PO HS 10/04/17 [History] Promethazine/Codeine [Phenergan/Codeine] 5 - 10 ml PO Q4-6H PRN 10/04/17 [ History] Fluticasone Propionate Nasal [Flonase] 100 mcg NS DAILY #1 bottle 10/07/17 [Rx] Oseltamivir Phosphate [Tamiflu] 30 mg PO BID #6 capsule 10/07/17 [Rx] levoFLOXacin [Levaquin] 750 mg PO DAILY #5 tablet 10/07/17 [Rx] Allergies/Adverse Reactions: 3 Allergy/AdvReac Type Severity Reaction Status Date / Time No Known Allergies Allergy Verified 10/04/17 10:32 Certification: Further, I certify that my clinical findings support that this patient is homebound (i.e. absences from home require considerable and taxing effort and are for medical reasons or yarsani services or infrequently or short duration when for other reasons) because: Homebound Reason: Patient requires assistance of a person or device to safely leave home Attestation: My signature below is to certify that this patient is under my care and that I, or nurse practitioner, or a physician's support assistant working with me, has a face-to -face encounter with this patient.
[2017-10-07 14:32] VITALS: BP 157/67
--- NOTE | 2017-10-07 15:52 | Electrocardiograph Report ---
[address] [address] Test Date: 2017-10-04 Pat Name: Kaylee Mitchell Department: 103 Room: 3B21 Gender: F Mica Layer: : 1935 Requested By: Poncho Cooney Order Number: [id number] Reading MD: Heriberto Jurado Measurements Intervals [employer] Rate: 85 P: 22 AL: 164 QRS: -33 QRSD: 92 T: 25 QT: 355 QTc: 398 Interpretive Statements SINUS RHYTHM MARKED LEFT AXIS DEVIATION Electronically Signed On 10-07-2017 15:50:47 EST by Heriberto Jurado
== END 2017-10-07 16:26 | disposition home health service (06) ==
LOC: 3BNU 10:21 → EMEROO 10:21 → 3BNU 15:22
PROVIDERS: ADMIT Internal Medicine Nephrology; ATTEND Registered Nurse

== ENCOUNTER 2019-07-02 13:31 | Observation (INO) ==
[2019-07-02 15:01] LABS: Red Cell Distribution Width 12.7 % (11.5-14.5)
[2019-07-02 15:03] LABS: Hematocrit 45.3 % (35.3-44.9); Hemoglobin 15.7 g/dL (11.5-15.4); Mean Corpuscular HGB Conc 34.7 g/dL (31.6-35.5); Mean Corpuscular Hemoglobin 32.6 pg (28.0-33.3); Mean Corpuscular Volume 94.2 fL (83.0-100.0); Mean Platelet Volume 11.1 fL (9.4-12.4); Monocytes # 2.1 K/mcL (0.0-1.3); Platelet Count 161 K/mcL (140-400); Red Blood Count 4.81 M/mcL (3.82-4.97); White Blood Count 25.8 K/mcL (4.3-11.1)
[2019-07-02 15:21] LABS: Alanine Aminotransferase 13 Units/L (7-52); Albumin 4.1 g/dL (3.5-5.7); Albumin/Globulin Ratio 1.7 (1.1-2.2); Alkaline Phosphatase 61 Units/L (34-104); Aspartate Amino Transferase 13 Units/L (13-39); BUN/Creatinine Ratio 16 (6-26); Bilirubin,Total 1.9 mg/dL (0.3-1.0); Blood Urea Nitrogen 19 mg/dL (8-23); Calcium 8.8 mg/dL (8.6-10.3); Carbon Dioxide 24 mEq/L (23-29); Chloride 103 mEq/L (98-107); Globulin 2.4 g/dL (2.4-3.5); Glucose 108 mg/dL (70-105); Magnesium 1.9 mg/dL (1.6-2.6); Osmolality,Calculated 285 (280-300); Potassium 3.8 mEq/L (3.5-5.1); Sodium 136 mEq/L (136-145); Thyroid Stimulating Hormone 0.553 mcIU/mL (0.340-5.600); Total Protein 6.5 g/dL (6.4-8.9); Troponin I < 0.03 ng/mL (< 0.04); eGFR For African Americans 52 (> 60); eGFR For Non-African Americans 43 (> 60)
[2019-07-02 15:28] LABS: Lymphocytes # 2.6 K/mcL (0.6-4.6); Neutrophils # 21.2 K/mcL (1.6-8.9)
[2019-07-02 16:51] LABS: Bilirubin,Urine Moderate (Negative); Blood,Urine Negative (Negative); Clarity,Urine Cloudy (Clear); Color,Urine Dark Yellow (Yellow); Glucose,Urine (UA) Normal (Normal); Ketones,Urine Trace mg/dL (Negative); Leukocyte Esterase,Urine Small (Negative); Nitrite,Urine Negative (Negative); PH,Urine 5.5 pH Units (5.0-8.0); Protein,Urine 30 mg/dL (Neg-Trace); Specific Gravity,Urine 1.019 (1.010-1.025); Urobilinogen,Urine Normal (Normal)
[2019-07-02 17:21] LABS: Amorphous Sediment,Urine Moderate (Few); Bacteria,Urine Many per hpf (None-Few); Squamous Epithelial Cell,Urine Many per lpf (None-Few); WBC,Urine 0-3 per hpf (0-3)
[2019-07-02] MEDS ORDERED: 0.9 % Sodium Chloride 1,000 ML IVC ONE (17:36)
[2019-07-02] MEDS ORDERED: Naloxone 0.4 MG/ML INJ IVP PRN (20:20)
[2019-07-02] MEDS: 0.9 % Sodium Chloride 1,000 ML IVC SCH (22:11)
[2019-07-03 02:07] LABS: Basophils # 0.1 K/mcL (0.0-0.2); Basophils % 0.9 %; Eosinophils # 0.1 K/mcL (0.0-0.6); Eosinophils % 0.7 %; Hematocrit 32.8 % (35.3-44.9); Immature Granulocytes % 0.7 % (0-4); Lymphocytes # 2.3 K/mcL (0.6-4.6); Lymphocytes % 26.4 %; Mean Corpuscular HGB Conc 33.8 g/dL (31.6-35.5); Mean Corpuscular Hemoglobin 30.6 pg (28.0-33.3); Mean Corpuscular Volume 90.4 fL (83.0-100.0); Mean Platelet Volume 12.7 fL (9.4-12.4); Monocytes # 0.7 K/mcL (0.0-1.3); Monocytes % 7.5 %; Neutrophils # 5.6 K/mcL (1.6-8.9); Platelet Count 180 K/mcL (140-400); Red Blood Count 3.63 M/mcL (3.82-4.97); Red Cell Distribution Width 13.4 % (11.5-14.5); Segmented Neutrophils % 63.8 %
[2019-07-03 02:34] LABS: Albumin 3.6 g/dL (3.5-5.7); Albumin/Globulin Ratio 1.1 (1.1-2.2); Bilirubin,Total 0.6 mg/dL (0.3-1.0); Calcium 8.9 mg/dL (8.6-10.3); Globulin 3.3 g/dL (2.4-3.5); Potassium 2.3 mEq/L (3.5-5.1); Total Protein 6.9 g/dL (6.4-8.9)
[2019-07-03] MEDS ORDERED: Potassium Chloride 20 MEQ, Lidocaine 1% 2 ML in 0.9 % Sodium Chloride 250 ML IVPB ONE (02:38)
[2019-07-03 02:50] LABS: Hemoglobin 11.1 g/dL (11.5-15.4); White Blood Count 8.8 K/mcL (4.3-11.1)
[2019-07-03] MEDS ORDERED: Potassium Chloride Elixir 20 MEQ/15 ML UDC PO ONE (04:38)
[2019-07-03] MEDS: cefTRIAXone 1,000 MG in Water for inj. (sterile) 10 ML IVP SCH (09:21)
[2019-07-03] MEDS: *HR* Heparin 5,000 UNIT/ML VIAL SQ SCH ×3 (09:21→21:09)
[2019-07-03] MEDS: 0.9 % Sodium Chloride 1,000 ML IVC SCH (13:58)
[2019-07-03] MEDS: 0.9 % Sodium Chloride w KCl 40 MEQ/1,000 ML MLS IVC SCH (18:18)
[2019-07-04 01:36] LABS: Basophils # 0.1 K/mcL (0.0-0.2); Basophils % 1.3 %; Eosinophils # 0.1 K/mcL (0.0-0.6); Eosinophils % 1.3 %; Hematocrit 31.5 % (35.3-44.9); Hemoglobin 10.3 g/dL (11.5-15.4); Immature Granulocytes % 0.4 % (0-4); Lymphocytes # 2.1 K/mcL (0.6-4.6); Lymphocytes % 30.5 %; Mean Corpuscular HGB Conc 32.7 g/dL (31.6-35.5); Mean Corpuscular Hemoglobin 30.1 pg (28.0-33.3); Mean Corpuscular Volume 92.1 fL (83.0-100.0); Mean Platelet Volume 12.6 fL (9.4-12.4); Monocytes # 0.6 K/mcL (0.0-1.3); Monocytes % 7.9 %; Neutrophils # 4.1 K/mcL (1.6-8.9); Platelet Count 179 K/mcL (140-400); Red Blood Count 3.42 M/mcL (3.82-4.97); Red Cell Distribution Width 13.6 % (11.5-14.5); Segmented Neutrophils % 58.6 %
[2019-07-04 01:55] LABS: BUN/Creatinine Ratio 21 (6-26); Blood Urea Nitrogen 19 mg/dL (8-23); Calcium 8.6 mg/dL (8.6-10.3); Carbon Dioxide 24 mEq/L (23-29); Chloride 104 mEq/L (98-107); Glucose 79 mg/dL (70-105); Osmolality,Calculated 293 (280-300); Potassium 2.9 mEq/L (3.5-5.1); Sodium 141 mEq/L (136-145); eGFR For African Americans > 60 (> 60); eGFR For Non-African Americans 60 (> 60)
[2019-07-04] MEDS: *HR* Heparin 5,000 UNIT/ML VIAL SQ SCH ×3 (05:36→20:12)
[2019-07-04] MEDS: 0.9 % Sodium Chloride w KCl 40 MEQ/1,000 ML MLS IVC SCH ×2 (06:24→19:49)
[2019-07-04] MEDS: cefTRIAXone 1,000 MG in Water for inj. (sterile) 10 ML IVP SCH (08:40)
[2019-07-04] MEDS: Potassium Chloride Elixir 20 MEQ/15 ML UDC PO SCH ×2 (08:40→12:10)
[2019-07-04] MEDS: carBAMazepine 200 MG TABLET PO SCH ×2 (12:09→20:12)
[2019-07-05 03:48] LABS: Red Cell Distribution Width 13.9 % (11.5-14.5)
[2019-07-05 03:57] LABS: Hematocrit 29.8 % (35.3-44.9); Immature Platelets 14.7 % (1.1-6.1); Mean Corpuscular HGB Conc 33.6 g/dL (31.6-35.5); Mean Corpuscular Hemoglobin 31.1 pg (28.0-33.3); Mean Corpuscular Volume 92.5 fL (83.0-100.0); Mean Platelet Volume 13.3 fL (9.4-12.4); Red Blood Count 3.22 M/mcL (3.82-4.97)
[2019-07-05 04:04] LABS: BUN/Creatinine Ratio 13 (6-26); Blood Urea Nitrogen 11 mg/dL (8-23); Calcium 8.7 mg/dL (8.6-10.3); Carbon Dioxide 26 mEq/L (23-29); Chloride 109 mEq/L (98-107); Glucose 100 mg/dL (70-105); Osmolality,Calculated 287 (280-300); Potassium 3.6 mEq/L (3.5-5.1); Sodium 139 mEq/L (136-145); eGFR For African Americans > 60 (> 60); eGFR For Non-African Americans > 60 (> 60)
[2019-07-05] MEDS: *HR* Heparin 5,000 UNIT/ML VIAL SQ SCH ×2 (06:14→13:56)
[2019-07-05] MEDS ORDERED: cephALEXin 500 MG CAPSULE PO SCH (09:00)
[2019-07-05] MEDS: carBAMazepine 200 MG TABLET PO SCH (09:54)
[2019-07-05] MEDS: 0.9 % Sodium Chloride w KCl 40 MEQ/1,000 ML MLS IVC SCH (09:55)
[2019-07-05] MEDS ORDERED: amLODIPine 5 MG TABLET PO SCH (10:27)
[2019-07-05 11:52] VITALS: BP 149/90
[2019-07-05] MEDS ORDERED: Gabapentin 300 MG CAPSULE PO SCH (21:00)
[2019-07-05] MEDS ORDERED: carBAMazepine 200 MG TABLET PO SCH (21:00)
== END 2019-07-05 14:48 ==
LOC: 3BNU 13:31 → EMEROOARM 13:31 → SUATTDRO 19:53 → 3BNU 20:24
PROVIDERS: ADMIT Pharmacist; ATTEND Internal Medicine

== ENCOUNTER 2022-05-05 08:08 | Inpatient (IN) ==
[2022-05-05 08:37] LABS: Basophils # 0.1 K/mcL (0.0-0.2); Basophils % 0.8 %; Eosinophils # 0.1 K/mcL (0.0-0.6); Eosinophils % 1.3 %; Hematocrit 34.8 % (35.3-44.9); Hemoglobin 11.6 g/dL (11.5-15.4); Immature Granulocytes % 0.2 % (0-4); Lymphocytes # 3.2 K/mcL (0.6-4.6); Lymphocytes % 36.5 %; Mean Corpuscular HGB Conc 33.3 g/dL (31.6-35.5); Mean Corpuscular Volume 96.1 fL (83.0-100.0); Mean Platelet Volume 11.4 fL (9.4-12.4); Monocytes # 0.6 K/mcL (0.0-1.3); Monocytes % 7.1 %; Neutrophils # 4.7 K/mcL (1.6-8.9); Platelet Count 185 K/mcL (140-400); Red Blood Count 3.62 M/mcL (3.82-4.97); Red Cell Distribution Width 13.1 % (11.5-14.5); Segmented Neutrophils % 54.1 %; White Blood Count 8.7 K/mcL (4.3-11.1)
[2022-05-05 08:58] LABS: Alanine Aminotransferase 12 Units/L (7-52); Albumin/Globulin Ratio 1.3 (1.1-2.2); Alkaline Phosphatase 82 Units/L (34-104); Aspartate Amino Transferase 15 Units/L (13-39); BUN/Creatinine Ratio 19 (6-26); Bilirubin,Total 0.4 mg/dL (0.3-1.0); Blood Urea Nitrogen 17 mg/dL (8-23); Calcium 9.5 mg/dL (8.6-10.3); Carbamazepine (Tegretol) 14 mcg/mL (4-12); Carbon Dioxide 26 mEq/L (23-29); Chloride 103 mEq/L (98-107); Glucose 186 mg/dL (70-105); Lipase 5 Units/L (11-82); Osmolality,Calculated 288 (280-300); Potassium 3.8 mEq/L (3.5-5.1); Sodium 136 mEq/L (136-145); Troponin I < 0.03 ng/mL (< 0.04); eGFR For African Americans > 60 (> 60); eGFR For Non-African Americans 59 (> 60)
[2022-05-05] MEDS ORDERED: Iopamidol - 370 500 ML MLS IVP ONE (08:59)
[2022-05-05 09:03] LABS: Amorphous Sediment,Urine Few per hpf (None-Few); Bacteria,Urine Few per hpf (None-Few); Bilirubin,Urine Negative (Negative); Blood,Urine Negative (Negative); Clarity,Urine Turbid (Clear); Color,Urine Yellow (Yellow); Glucose,Urine (UA) Normal (Normal); Ketones,Urine Negative (Negative); Leukocyte Esterase,Urine Small (Negative); Mucus,Urine Few per lpf (None-Few); Nitrite,Urine Positive (Negative); Protein,Urine Negative (Neg-Trace); RBC,Urine 0-3 per hpf (0-3); Specific Gravity,Urine 1.015 (1.010-1.025); Squamous Epithelial Cell,Urine Moderate per hpf (None-Few); Urobilinogen,Urine Normal (Normal)
[2022-05-05] MEDS ORDERED: D5% in Water 1,000 ML IVC PRN (11:41)
[2022-05-05] MEDS ORDERED: Dextrose Gel 15 GM/37.5 ML TUBE PO PRN ×2 (11:41)
[2022-05-05] MEDS ORDERED: Naloxone 0.4 MG/ML INJ IVP PRN (11:41)
[2022-05-05] MEDS ORDERED: *HR* Dextrose 50 % in Water (Syg) 50 ML SYRINGE IVP PRN (11:41)
[2022-05-05 13:10] LABS: Estimated Average Glucose 166 mg/dl; Hemoglobin A1C 7.4 %
[2022-05-05] MEDS: Insulin LISPRO 300 UNITS/3 ML VIAL SUBQ SCH ×2 (18:14→20:05)
[2022-05-05] MEDS: Gabapentin 300 MG CAPSULE PO SCH (18:16)
[2022-05-05] MEDS: carBAMazepine 200 MG TABLET PO SCH (20:05)
[2022-05-06] MEDS: Acetaminophen 325 MG TABLET PO PRN ×2 (02:37→19:30)
[2022-05-06 05:43] LABS: Basophils # 0.1 K/mcL (0.0-0.2); Basophils % 0.7 %; Eosinophils # 0.1 K/mcL (0.0-0.6); Eosinophils % 1.1 %; Hematocrit 34.1 % (35.3-44.9); Hemoglobin 11.5 g/dL (11.5-15.4); Immature Granulocytes % 0.3 % (0-4); Lymphocytes # 2.2 K/mcL (0.6-4.6); Mean Corpuscular HGB Conc 33.7 g/dL (31.6-35.5); Mean Corpuscular Hemoglobin 31.6 pg (28.0-33.3); Mean Corpuscular Volume 93.7 fL (83.0-100.0); Mean Platelet Volume 11.7 fL (9.4-12.4); Monocytes # 0.8 K/mcL (0.0-1.3); Monocytes % 8.8 %; Neutrophils # 5.7 K/mcL (1.6-8.9); Platelet Count 182 K/mcL (140-400); Red Blood Count 3.64 M/mcL (3.82-4.97); Red Cell Distribution Width 12.8 % (11.5-14.5); Segmented Neutrophils % 64.1 %; White Blood Count 8.9 K/mcL (4.3-11.1)
[2022-05-06 06:01] LABS: Alanine Aminotransferase 12 Units/L (7-52); Albumin 3.7 g/dL (3.5-5.7); Albumin/Globulin Ratio 1.2 (1.1-2.2); Alkaline Phosphatase 75 Units/L (34-104); Aspartate Amino Transferase 15 Units/L (13-39); BUN/Creatinine Ratio 21 (6-26); Bilirubin,Total 0.4 mg/dL (0.3-1.0); Blood Urea Nitrogen 16 mg/dL (8-23); Calcium 9.2 mg/dL (8.6-10.3); Carbon Dioxide 30 mEq/L (23-29); Chloride 104 mEq/L (98-107); Glucose 162 mg/dL (70-105); Osmolality,Calculated 295 (280-300); Potassium 4.1 mEq/L (3.5-5.1); Sodium 140 mEq/L (136-145); Total Protein 6.7 g/dL (6.4-8.9); eGFR For African Americans > 60 (> 60); eGFR For Non-African Americans > 60 (> 60)
[2022-05-06] MEDS ORDERED: Latanoprost 2.5 ML BOTTLE BOTH EYES SCH (09:00)
[2022-05-06] MEDS: carBAMazepine 200 MG TABLET PO SCH ×2 (09:48→19:30)
[2022-05-06] MEDS: Gabapentin 100 MG CAPSULE PO SCH (09:48)
[2022-05-06] MEDS: amLODIPine 5 MG TABLET PO SCH (09:48)
[2022-05-06] MEDS: cefTRIAXone 1,000 MG in 0.9 % Sodium Chloride 10 ML IVP SCH (09:49)
[2022-05-06] MEDS: Cholecalciferol (D-3) 1,000 UNIT (25MCG) TABLET PO SCH (09:49)
[2022-05-06] MEDS: *HR* Enoxaparin 40 MG/0.4 ML SYRINGE SQ SCH (09:50)
[2022-05-06] MEDS: *HR* HYDROcodone/Acet 5/325 mg TABLET PO PRN ×2 (09:51→22:32)
[2022-05-06] MEDS: Insulin LISPRO 300 UNITS/3 ML VIAL SUBQ SCH ×4 (09:52→21:59)
[2022-05-06] MEDS: Gabapentin 300 MG CAPSULE PO SCH (18:16)
[2022-05-06] MEDS: *HR* OxyCODONE Immed Rel 5 MG TABLET PO PRN (19:30)
[2022-05-06] MEDS: Melatonin 3 MG TABLET PO PRN (19:30)
[2022-05-06] MEDS: Latanoprost 2.5 ML BOTTLE BOTH EYES SCH (21:59)
[2022-05-07] MEDS: *HR* OxyCODONE Immed Rel 5 MG TABLET PO PRN ×3 (01:43→21:31)
[2022-05-07] MEDS: Ondansetron ODT 4 MG TAB.RAPDIS SL PRN (02:07)
[2022-05-07 03:28] LABS: Basophils # 0.1 K/mcL (0.0-0.2); Eosinophils # 0.2 K/mcL (0.0-0.6); Eosinophils % 2.1 %; Hematocrit 35.1 % (35.3-44.9); Hemoglobin 11.7 g/dL (11.5-15.4); Immature Granulocytes % 0.1 % (0-4); Lymphocytes # 2.8 K/mcL (0.6-4.6); Lymphocytes % 34.6 %; Mean Corpuscular HGB Conc 33.3 g/dL (31.6-35.5); Mean Corpuscular Hemoglobin 31.5 pg (28.0-33.3); Mean Corpuscular Volume 94.6 fL (83.0-100.0); Mean Platelet Volume 11.6 fL (9.4-12.4); Monocytes # 0.8 K/mcL (0.0-1.3); Monocytes % 9.6 %; Neutrophils # 4.3 K/mcL (1.6-8.9); Platelet Count 194 K/mcL (140-400); Red Blood Count 3.71 M/mcL (3.82-4.97); Red Cell Distribution Width 13.2 % (11.5-14.5); Segmented Neutrophils % 52.6 %; White Blood Count 8.1 K/mcL (4.3-11.1)
[2022-05-07 04:02] LABS: Calcium 9.2 mg/dL (8.6-10.3); Potassium 3.8 mEq/L (3.5-5.1)
[2022-05-07] MEDS: *HR* HYDROcodone/Acet 5/325 mg TABLET PO PRN (04:33)
[2022-05-07] MEDS: *HR* Enoxaparin 40 MG/0.4 ML SYRINGE SQ SCH (05:07)
[2022-05-07] MEDS: Acetaminophen 325 MG TABLET PO PRN ×2 (07:43→21:31)
[2022-05-07] MEDS: amLODIPine 5 MG TABLET PO SCH (07:56)
[2022-05-07] MEDS: Gabapentin 100 MG CAPSULE PO SCH (07:56)
[2022-05-07] MEDS: carBAMazepine 200 MG TABLET PO SCH ×2 (07:56→21:31)
[2022-05-07] MEDS: Cholecalciferol (D-3) 1,000 UNIT (25MCG) TABLET PO SCH (07:56)
[2022-05-07] MEDS: cefTRIAXone 1,000 MG in 0.9 % Sodium Chloride 10 ML IVP SCH (07:57)
[2022-05-07] MEDS: 0.9 % Sodium Chloride 1,000 ML IVC SCH ×2 (07:58→17:27)
[2022-05-07] MEDS: Insulin LISPRO 300 UNITS/3 ML VIAL SUBQ SCH ×4 (07:59→21:25)
[2022-05-07] MEDS: Gabapentin 300 MG CAPSULE PO SCH (17:27)
[2022-05-07] MEDS: Latanoprost 2.5 ML BOTTLE BOTH EYES SCH (22:13)
[2022-05-07] MEDS: Melatonin 3 MG TABLET PO PRN (22:33)
[2022-05-08] MEDS: *HR* HYDROcodone/Acet 5/325 mg TABLET PO PRN (01:51)
[2022-05-08] MEDS: Ondansetron ODT 4 MG TAB.RAPDIS SL PRN (01:51)
[2022-05-08] MEDS: *HR* OxyCODONE Immed Rel 5 MG TABLET PO PRN (03:38)
[2022-05-08 05:36] LABS: Basophils # 0.1 K/mcL (0.0-0.2); Eosinophils # 0.2 K/mcL (0.0-0.6); Eosinophils % 2.1 %; Hematocrit 32.2 % (35.3-44.9); Hemoglobin 10.6 g/dL (11.5-15.4); Immature Granulocytes % 0.2 % (0-4); Lymphocytes # 2.6 K/mcL (0.6-4.6); Lymphocytes % 29.2 %; Mean Corpuscular HGB Conc 32.9 g/dL (31.6-35.5); Mean Corpuscular Hemoglobin 31.7 pg (28.0-33.3); Mean Corpuscular Volume 96.4 fL (83.0-100.0); Mean Platelet Volume 12.2 fL (9.4-12.4); Monocytes # 0.8 K/mcL (0.0-1.3); Monocytes % 9.3 %; Neutrophils # 5.1 K/mcL (1.6-8.9); Platelet Count 178 K/mcL (140-400); Red Blood Count 3.34 M/mcL (3.82-4.97); Red Cell Distribution Width 13.1 % (11.5-14.5); Segmented Neutrophils % 58.2 %; White Blood Count 8.8 K/mcL (4.3-11.1)
[2022-05-08 05:53] LABS: BUN/Creatinine Ratio 31 (6-26); Blood Urea Nitrogen 32 mg/dL (8-23); Carbon Dioxide 27 mEq/L (23-29); Chloride 107 mEq/L (98-107); Glucose 136 mg/dL (70-105); Osmolality,Calculated 299 (280-300); Potassium 4.1 mEq/L (3.5-5.1); Sodium 140 mEq/L (136-145); eGFR For African Americans > 60 (> 60); eGFR For Non-African Americans 52 (> 60)
[2022-05-08] MEDS: *HR* Enoxaparin 40 MG/0.4 ML SYRINGE SQ SCH (06:46)
[2022-05-08] MEDS: Insulin LISPRO 300 UNITS/3 ML VIAL SUBQ SCH ×3 (07:13→17:02)
[2022-05-08] MEDS: amLODIPine 5 MG TABLET PO SCH (07:59)
[2022-05-08] MEDS: carBAMazepine 200 MG TABLET PO SCH (07:59)
[2022-05-08] MEDS: Gabapentin 100 MG CAPSULE PO SCH (07:59)
[2022-05-08] MEDS: Cholecalciferol (D-3) 1,000 UNIT (25MCG) TABLET PO SCH (07:59)
[2022-05-08] MEDS ORDERED: Cefdinir 300 MG CAPSULE PO SCH (11:15)
[2022-05-08] MEDS: cefTRIAXone 1,000 MG in 0.9 % Sodium Chloride 10 ML IVP SCH (11:19)
[2022-05-08 12:06] VITALS: TEMP 98.9
[2022-05-08 16:38] VITALS: BP 154/70; PULSE 77; O2SAT 93
== END 2022-05-08 18:21 | disposition home health service (06) | DRG 463 ==
LOC: 2ANU 08:08 → EMEROOARM 08:08 → SUATTDRO 10:48 → 2ANU 11:31 → SUATTDRO 05-06 12:24
PROVIDERS: ADMIT Family Medicine; ATTEND Internal Medicine